=== PATIENT | male | born 1940 | race Caucasian/White ===

== ENCOUNTER → 2019-01-11 08:29 | Day surgery (SDC) | payer MEDICARE ==
--- NOTE | 2019-01-09 11:09 | HP ---
CC: Dr. Gary; Dr. Riojas; Dr. Veliz * ADMISSION HISTORY AND PHYSICAL: DATE OF ADMISSION: 01/11/19 ADMITTING DIAGNOSES: 1. Recurrent episodes of gross hematuria. 2. History of prostate cancer. 3. History of superficial bladder cancer. SURGICAL PROCEDURE: Cystoscopy, possible transurethral resection of bladder tumor. SURGEON: Dr. Veliz. HISTORY OF PRESENT ILLNESS: Ronaldo Wheeler is a 78-year-old former smoker who had undergone radiation therapy in 2004 for Al 6 prostate cancer. 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 He subsequently had bladder biopsies done on 2 separate occasions and the pathology at that time was reported as benign. He has recently had recurrent episodes of gross hematuria including problems of clot retention requiring catheterization and catheter irrigation and this has persisted in spite of his having stopped his Plavix and aspirin. Because of the continued episodes of hematuria, he is now being brought in for cystoscopy and possible transurethral resection of bladder tumors depending on intraoperative findings. PAST MEDICAL HISTORY: Significant for, 1. Abdominal aortic aneurysm. 2. Coronary artery disease. 3. Peripheral vascular disease. 4. History of prostate cancer. 5. History of colon cancer. 6. Hypertension. 7. Hypercholesterolemia. 8. COPD. 9. Diabetes. 10. Gout. PAST SURGICAL HISTORY: Significant for, 1. Transurethral resection of prostate in 2006. 2. Transurethral resection of bladder lesions of several locations. 3. Cataract surgery. 4. AAA repair in 2001. 5. Colon cancer resection in 2001. 6. Multiple surgeries for Zenker's diverticulum. 7. Angioplasty and coronary stent placement in 2003. MEDICATIONS ON ADMISSION: 1. Gabapentin 600 mg 3 tablets twice a day. 2. Allopurinol 600 mg daily. 3. Metformin 500 mg twice a day. 4. DuoNeb 0.5/2.5 four times a day p.r.n. 5. Ventolin 1 to 2 puffs every 4 to 6 hours as needed. 6. Gemfibrozil 600 mg twice a day. 7. Lisinopril 10 mg a day. 8. Atorvastatin 80 mg daily. 9. Metoprolol 25 mg once a day. 10. Isosorbide 30 mg daily. ALLERGIES: MORPHINE (rash). FAMILY HISTORY: Negative for bladder cancer. SOCIAL HISTORY: Smoking history: He is a former smoker who quit in 1993. PHYSICAL EXAMINATION GENERAL: Reveals a pleasant elderly gentleman. VITAL SIGNS: Blood pressure is 114/72, pulse 83 per minute and regular, oxygen saturation 97%, temperature 96.2. LUNGS: Clear bilaterally. CARDIOVASCULAR: Regular rate and rhythm. S1, S2. ABDOMEN: Soft without masses. A Arellano catheter is in place. IMPRESSION: A 78-year-old former smoker with a history of bladder and prostate cancer, who continues to have significant episodic hematuria in spite of being off the anticoagulation medicine. PLAN: Plan is for cystoscopy and possible transurethral resection of bladder tumor. [id number]/[facility] #: [id number] MTDD
[~2019-01-11 08:29] MED LIST: Acetaminophen IV 1GM/100ML * 1,000 MG/100 ML VIAL IVPB ONE; Buffered Lidocaine 1% SYRIN* 1 ML/SYRINGE INTRADERM ONE; Furosemide IV* 10 MG/ML 2 ML VIAL (20 MG) ONE; Lactated Ringers 1000 ML Bag* 1,000 ML IV SCH; Lidocaine 2% JELLY* 6 ML JELLY TOPICAL ONE; Lidocaine 2% PF * 5 ML VIAL ONE; Metoprolol Tartrate IV* 1 MG/ML 5 ML VIAL ONE; Naloxone* 0.4 MG/ML 1 ML VIAL IV PRN; Ondansetron INJ* 2 MG/ML VIAL IV PRN; Propofol* 10 MG/ML 20 ML BTL ONE; Sodium Citrate/Citric Acid* 15 ML UDC ONE; Sodium Citrate/Citric Acid* 15 ML UDC PO ONE; cefTRIAXone(*) 2 GM ADDV.VIAL IVPB ONE; fentaNYL* 50 MCG/ML 2 ML VIAL (100 MCG VIAL) IV PRN; fentaNYL* 50 MCG/ML 2 ML VIAL (100 MCG VIAL) ONE
[2019-01-11 12:52] VITALS: BP 157/67
--- NOTE | 2019-01-11 13:08 | OP ---
CC: Dr. Gary * DATE OF OPERATION: 01/11/19 - [facility] DATE OF : 38 SURGEON: Dr. Veliz. ANESTHESIOLOGIST: Dr. Dai. ANESTHESIA: General. PRE-OP DIAGNOSES: 1. Gross hematuria. 2. History of prostate and bladder cancer. POST-OP DIAGNOSES: 1. Gross hematuria. 2. History of prostate and bladder cancer. OPERATIVE PROCEDURES: 1. Cystoscopy, excision biopsies of bladder lesions (2 to 3 cm). 2. Transurethral incision of prostate. 3. Transurethral incision of bladder neck. COMPLICATIONS: None. BLOOD LOSS: Less than 25 cc. CATHETER: 24-Sammar[place] Arellano. INDICATIONS: Ronaldo Wheeler is a 78-year-old gentleman with episodic gross hematuria who has a past history of prostate cancer as well as superficial bladder cancer. He continues to have episodic gross hematuria in spite of having stopped the Plavix and is now being brought into further evaluation and management. OPERATIVE FINDINGS: 1. Mild stricture at bladder neck. 2. Few areas of posterior bladder wall possibly representing low-grade superficial bladder cancer. 3. Few areas of telangiectasia in right lateral wall of bladder and in prostatic urethra. POSTOPERATIVE CONDITION: Stable. DESCRIPTION OF PROCEDURE: After induction of general anesthesia, the patient was placed in dorsal lithotomy position. Sequential compression devices were in place and functioning. Initial cystoscopy revealed a normal-appearing urethra. There was very mild enlargement in the area of the prostate with some areas of increased vascularity noted in the prostatic urethra. There was a mild stricture at the bladder neck. The bladder was examined. The right and left ureteral orifices were normal in position and configuration. In the posterior bladder wall, there were few small areas which may represent low- grade superficial bladder tumor. There were some areas of telangiectasia in the posterior bladder wall on the right side. Excision biopsies were performed for the lesions in the posterior bladder wall which were sent for histopathology. Next, a resectoscope was introduced and areas were carefully cauterized at the edges and the bases. The few areas of telangiectasia in the bladder wall were also cauterized. Next, using a right angle knife electrode, transurethral incision of the prostate and transurethral incision of the bladder neck was carried out. Once this was done and hemostasis was achieved, 24-S[place] Arellano was introduced without difficulty and connected to a drainage bag. The patient tolerated the procedure satisfactorily and was transferred back to the recovery area in stable condition. [id number]/[facility] #: [id number] MTDD
== END | disposition home or self-care (01) ==
LOC: OR 08:29
PROVIDERS: ATTEND Urology
DX: N32.89 Other specified disorders of bladder (principal); R31.0 Gross hematuria; Z85.46 Personal history of malignant neoplasm of prostate; Z85.51 Personal history of malignant neoplasm of bladder; E11.9 Type 2 diabetes mellitus without complications; Z79.84 Long term (current) use of oral hypoglycemic drugs; I25.10 Atherosclerotic heart disease of native coronary artery without angina pectoris; I10 Essential (primary) hypertension; J44.9 Chronic obstructive pulmonary disease, unspecified; M10.9 Gout, unspecified; I73.9 Peripheral vascular disease, unspecified; Z87.891 Personal history of nicotine dependence; Z95.5 Presence of coronary angioplasty implant and graft
CPT/HCPCS: 36415; 84132; 85730; 88305; A9270-GY; J0696; J1940; J2704; J3010; J3490

== ENCOUNTER 2020-04-08 21:14 | Observation (INO) ==
[2020-04-09 01:18] LABS: ABS Lymphocytes 1.1 10^3/ul (1.0-4.8); ABS Monocytes 0.7 10^3/ul (0-0.8); ABS Neutrophils 6.1 10^3/ul (1.5-7.7); Eosinophil % 0.6 %; Hematocrit 39 % (42-52); Hemoglobin 13.4 g/dL (14.0-18.0); Lymphocyte % 13.5 %; Mean Corpuscular HGB Conc 35 g/dL (31-36); Mean Corpuscular Hemoglobin 32 pg (27-31); Mean Corpuscular Volume 92 fL (80-94); Mean Platelet Volume 7.8 fL (7.4-10.4); Platelet Count 167 10^3/uL (150-450); Red Cell Distribution Width 17 % (10-15); White Blood Count 7.9 10^3/uL (3.5-10.8)
[2020-04-09 01:46] LABS: ALT 14 U/L (7-52); AST 25 U/L (13-39); Albumin 4.2 g/dL (3.2-5.2); Albumin/Globulin Ratio 1.4 (1-3); Alkaline Phosphatase 104 U/L (34-104); Anion Gap 8 mmol/L (2-11); BUN/Creatinine Ratio 17.7 (8-20); Blood Urea Nitrogen 25 mg/dL (6-24); CO2 Carbon Dioxide 28 mmol/L (22-32); Calcium 9.5 mg/dL (8.6-10.3); Chloride 99 mmol/L (101-111); EGFR African American 58.5 (>60); EGFR Non-African American 48.4 (>60); Globulin 2.9 g/dL (2-4); Glucose 120 mg/dL (70-100); Potassium 4.2 mmol/L (3.5-5.0); Sodium 135 mmol/L (135-145); Total Protein 7.1 g/dL (6.4-8.9)
[2020-04-09 01:56] LABS: Troponin I 0.05 ng/mL (<0.03)
[2020-04-09 04:52] LABS: Troponin I 0.04 ng/mL (<0.03)
[2020-04-09] MEDS ORDERED: NS 0.9% 1000 ml BAG 1,000 ML IV ONE (05:51)
[2020-04-09] MEDS ORDERED: Dextrose 50% Syringe 50 ml 25 GM/50 ML SYRINGE IV PUSH PRN (05:52)
[2020-04-09 05:56] LABS: Urine Appearance Turbid; Urine Bilirubin Negative (Negative); Urine Blood 1+ (Negative); Urine Color Amber; Urine Glucose Negative (Negative); Urine Ketones Trace (Negative); Urine Nitrite Positive (Negative); Urine Protein 3+(>=500 mg/dL) (Negative); Urine Specific Gravity 1.019 (1.010-1.030); Urine Urobilinogen Negative (Negative)
[2020-04-09 06:09] LABS: Urine Bacteria 2+ (Absent); Urine Red Blood Cell 3+(>10/hpf) (Absent); Urine White Blood Cell 3+(>20/hpf) (Absent)
[2020-04-09] MEDS ORDERED: cefTRIAXone 1 gm/50 mL NS BAG 1 GM/50 ML BAG IVPB SCH (07:00)
[2020-04-09 07:19] LABS: TSH Ultra Thyroid Stim Horm 3.02 mcIU/mL (0.34-5.60)
[2020-04-09 07:30] LABS: Vitamin B12 207 pg/mL (180-914)
[2020-04-09 09:37] LABS: Troponin I 0.04 ng/mL (<0.03)
[2020-04-09 10:07] LABS: Folate > 20.00 ng/mL (>3.99)
[2020-04-09] MEDS: cefTRIAXone 1 gm/50 mL NS BAG 1 GM/50 ML BAG IVPB SCH (11:19)
[2020-04-10 05:33] LABS: ABS Eosinophils 0.1 10^3/ul (0-0.6); ABS Monocytes 0.6 10^3/ul (0-0.8); ABS Neutrophils 5.3 10^3/ul (1.5-7.7); Hematocrit 42 % (42-52); Hemoglobin 14.1 g/dL (14.0-18.0); Lymphocyte % 14.4 %; Mean Corpuscular HGB Conc 33 g/dL (31-36); Mean Corpuscular Hemoglobin 31 pg (27-31); Mean Corpuscular Volume 94 fL (80-94); Mean Platelet Volume 8.4 fL (7.4-10.4); Platelet Count 157 10^3/uL (150-450); Red Blood Count 4.49 10^6 /uL (4.18-5.48); Red Cell Distribution Width 16 % (10-15)
[2020-04-10 05:50] LABS: BUN/Creatinine Ratio 23.1 (8-20); Calcium 9.5 mg/dL (8.6-10.3); EGFR African American 69.8 (>60); EGFR Non-African American 57.7 (>60); Potassium 4.1 mmol/L (3.5-5.0)
[2020-04-10] MEDS ORDERED: Aspirin EC 81 mg TAB.EC (enteric coated) PO SCH (09:00)
[2020-04-10] MEDS: cefTRIAXone 1 gm/50 mL NS BAG 1 GM/50 ML BAG IVPB SCH (09:01)
[2020-04-10 11:11] VITALS: BP 139/64
== END 2020-04-10 13:40 | disposition home or self-care (01) ==
LOC: ED 21:14 → MEDTELE 21:14 → ED 04-09 08:01
PROVIDERS: ADMIT Student in an Organized Health Care Education/Training Program; ATTEND Internal Medicine

== ENCOUNTER 2020-11-27 16:34 | Inpatient (IN) ==
[2020-11-27 20:24] LABS: ABS Eosinophils 0.1 10^3/ul (0-0.6); ABS Lymphocytes 1.2 10^3/ul (1.0-4.8); ABS Monocytes 0.5 10^3/ul (0-0.8); ABS Neutrophils 5.6 10^3/ul (1.5-7.7); Eosinophil % 0.7 %; Hematocrit 43 % (42-52); Hemoglobin 14.5 g/dL (14.0-18.0); Lymphocyte % 15.6 %; Mean Corpuscular HGB Conc 34 g/dL (31-36); Mean Corpuscular Hemoglobin 32 pg (27-31); Mean Corpuscular Volume 96 fL (80-94); Platelet Count 151 10^3/uL (150-450); Red Cell Distribution Width 17 % (10-15); White Blood Count 7.4 10^3/uL (3.5-10.8)
[2020-11-27 20:38] LABS: Ammonia 23 mcmol/L (16-53)
[2020-11-27 20:39] LABS: ALT 9 U/L (7-52); AST 16 U/L (13-39); Albumin 4.3 g/dL (3.2-5.2); Albumin/Globulin Ratio 1.6 (1-3); Alkaline Phosphatase 103 U/L (35-149); Anion Gap 9 mmol/L (2-11); Blood Urea Nitrogen 26 mg/dL (6-24); CO2 Carbon Dioxide 27 mmol/L (22-32); Calcium 9.2 mg/dL (8.6-10.3); Chloride 97 mmol/L (101-111); EGFR Non-African American 52.1 (>60); Globulin 2.7 g/dL (2-4); Glucose 100 mg/dL (70-100); Lipase 11 U/L (11.0-82.0); Magnesium 1.6 mg/dL (1.9-2.7); Potassium 4.1 mmol/L (3.5-5.0); Sodium 133 mmol/L (135-145)
[2020-11-27 20:43] LABS: BNP 56 pg/mL (<=100)
[2020-11-27 20:56] LABS: Troponin I 0.03 ng/mL (<0.03)
[2020-11-27 22:11] LABS: Urine Appearance Clear; Urine Bilirubin Negative (Negative); Urine Blood 1+ (Negative); Urine Color Yellow; Urine Glucose Negative (Negative); Urine Ketones Trace (Negative); Urine Nitrite Negative (Negative); Urine Protein 3+(>=500 mg/dL) (Negative); Urine Specific Gravity 1.012 (1.002-1.030); Urine Urobilinogen Negative (Negative)
[2020-11-27] MEDS ORDERED: Iodixanol (CONTRAST) 320 MG/ML 100 ML SDV IV ONE (22:50)
[2020-11-27 22:51] LABS: Troponin I 0.03 ng/mL (<0.03)
[2020-11-27] MEDS ORDERED: Dextrose 50% Syringe 50 ml 25 GM/50 ML SYRINGE IV PUSH PRN (23:08)
[2020-11-27] MEDS ORDERED: Ondansetron 4 mg VIAL 2 MG/ML 2 ml VIAL IV PRN (23:08)
[2020-11-27] MEDS ORDERED: Albuterol HFA INHALER 8 gm MDI INH PRN (23:14)
[2020-11-28 01:21] LABS: PCO2 Arterial 38 mmHg (35-45); PO2 Arterial 82 mmHg (80-100)
[2020-11-28 03:19] LABS: Activated Partial Thrombo Time 30.6 seconds (26.0-38.0); INR 1.09 (0.86-1.15)
[2020-11-28 03:25] LABS: Anion Gap 11 mmol/L (2-11); Blood Urea Nitrogen 25 mg/dL (6-24); CO2 Carbon Dioxide 24 mmol/L (22-32); Calcium 9.2 mg/dL (8.6-10.3); Chloride 95 mmol/L (101-111); Cholesterol 185 mg/dL; EGFR African American 62.4 (>60); EGFR Non-African American 51.6 (>60); Glucose 99 mg/dL (70-100); HDL Cholesterol 41.2 mg/dL; LDL Cholesterol 96 mg/dL; Potassium 3.9 mmol/L (3.5-5.0); Sodium 130 mmol/L (135-145); Triglycerides 240 mg/dL
[2020-11-28 03:40] LABS: TSH Ultra Thyroid Stim Horm 4.51 mcIU/mL (0.34-5.60)
[2020-11-28 03:45] LABS: Troponin I 0.03 ng/mL (<0.03)
[2020-11-28 05:53] LABS: ABS Basophils 0.1 10^3/ul (0-0.2); ABS Eosinophils 0.1 10^3/ul (0-0.6); ABS Lymphocytes 0.9 10^3/ul (1.0-4.8); ABS Monocytes 0.6 10^3/ul (0-0.8); ABS Neutrophils 5.8 10^3/ul (1.5-7.7); Eosinophil % 1.1 %; Hematocrit 42 % (42-52); Hemoglobin 14.2 g/dL (14.0-18.0); Lymphocyte % 12.6 %; Mean Corpuscular HGB Conc 34 g/dL (31-36); Mean Corpuscular Hemoglobin 33 pg (27-31); Mean Corpuscular Volume 97 fL (80-94); Mean Platelet Volume 8.1 fL (7.4-10.4); Nucleated Red Blood Cells % 0.1; Platelet Count 137 10^3/uL (150-450); Red Blood Count 4.37 10^6 /uL (4.18-5.48); Red Cell Distribution Width 16 % (10-15); White Blood Count 7.4 10^3/uL (3.5-10.8)
[2020-11-28] MEDS: Heparin 5000 UNITS/ML 1 mL VIAL SUBCUT SCH ×3 (06:00→23:30)
[2020-11-28 06:43] LABS: Troponin I 0.03 ng/mL (<0.03)
[2020-11-28 07:41] LABS: Magnesium 1.7 mg/dL (1.9-2.7)
[2020-11-28] MEDS: Isosorbide Mononit ER 30mg TAB PO SCH (10:17)
[2020-11-28] MEDS ORDERED: NS 0.9% 1000 ml BAG 1,000 ML IV ONE (12:14)
[2020-11-28] MEDS ORDERED: NS 0.9% 500 ml BAG 500 ML IV SCH (15:23)
[2020-11-29 06:11] LABS: Hematocrit 37 % (42-52); Hemoglobin 12.8 g/dL (14.0-18.0); Mean Corpuscular HGB Conc 34 g/dL (31-36); Mean Corpuscular Hemoglobin 32 pg (27-31); Mean Corpuscular Volume 95 fL (80-94); Mean Platelet Volume 8.4 fL (7.4-10.4); Platelet Count 138 10^3/uL (150-450); Red Blood Count 3.94 10^6 /uL (4.18-5.48); Red Cell Distribution Width 16 % (10-15); White Blood Count 5.9 10^3/uL (3.5-10.8)
[2020-11-29 06:22] LABS: Calcium 8.9 mg/dL (8.6-10.3); Potassium 4.2 mmol/L (3.5-5.0)
[2020-11-29 06:28] LABS: EGFR African American 56.1 (>60); EGFR Non-African American 46.3 (>60); Phosphorus 3.7 mg/dL (2.5-5.0)
[2020-11-29] MEDS: Heparin 5000 UNITS/ML 1 mL VIAL SUBCUT SCH ×2 (06:42→14:48)
[2020-11-29] MEDS: Isosorbide Mononit ER 30mg TAB PO SCH (09:55)
[2020-11-29] MEDS ORDERED: Cyanocobalamin INJ 1,000 MCG/ML VIAL 1 ML VIAL IM ONE ×2 (18:16→21:00)
[2020-11-30] MEDS: Heparin 5000 UNITS/ML 1 mL VIAL SUBCUT SCH ×4 (00:06→20:04)
[2020-11-30 06:26] LABS: Hematocrit 39 % (42-52); Hemoglobin 12.8 g/dL (14.0-18.0); Mean Corpuscular HGB Conc 33 g/dL (31-36); Mean Corpuscular Hemoglobin 33 pg (27-31); Mean Corpuscular Volume 98 fL (80-94); Mean Platelet Volume 8.3 fL (7.4-10.4); Platelet Count 146 10^3/uL (150-450); Red Blood Count 3.94 10^6 /uL (4.18-5.48); Red Cell Distribution Width 17 % (10-15); White Blood Count 6.1 10^3/uL (3.5-10.8)
[2020-11-30 06:43] LABS: Calcium 9.1 mg/dL (8.6-10.3); EGFR African American 39.2 (>60); EGFR Non-African American 32.4 (>60); Magnesium 2.2 mg/dL (1.9-2.7); Phosphorus 4.2 mg/dL (2.5-5.0); Potassium 4.3 mmol/L (3.5-5.0)
[2020-11-30] MEDS ORDERED: NS 0.9% 1000 ml BAG 1,000 ML IV ONE (09:44)
[2020-11-30] MEDS: Isosorbide Mononit ER 30mg TAB PO SCH (10:28)
[2020-11-30 10:57] LABS: Urine Potassium Concentration 36.5 mmol/L
[2020-11-30 11:10] LABS: Urine Benzodiazepine Screen None Detected (None Detect); Urine Cannabinoids Screen None Detected (None Detect); Urine Opiates Screen None Detected (None Detect)
[2020-12-01] MEDS: Heparin 5000 UNITS/ML 1 mL VIAL SUBCUT SCH (05:25)
[2020-12-01 06:24] LABS: ABS Eosinophils 0.1 10^3/ul (0-0.6); ABS Lymphocytes 0.9 10^3/ul (1.0-4.8); ABS Monocytes 0.5 10^3/ul (0-0.8); ABS Neutrophils 3.4 10^3/ul (1.5-7.7); Eosinophil % 1.9 %; Hematocrit 39 % (42-52); Hemoglobin 12.8 g/dL (14.0-18.0); Lymphocyte % 17.9 %; Mean Corpuscular HGB Conc 33 g/dL (31-36); Mean Corpuscular Hemoglobin 33 pg (27-31); Mean Corpuscular Volume 99 fL (80-94); Mean Platelet Volume 8.3 fL (7.4-10.4); Platelet Count 140 10^3/uL (150-450); Red Blood Count 3.93 10^6 /uL (4.18-5.48); Red Cell Distribution Width 16 % (10-15); White Blood Count 4.9 10^3/uL (3.5-10.8)
[2020-12-01 06:26] LABS: Calcium 8.8 mg/dL (8.6-10.3); Potassium 4.4 mmol/L (3.5-5.0)
[2020-12-01 06:32] LABS: EGFR African American 60.9 (>60); EGFR Non-African American 50.3 (>60)
[2020-12-01] MEDS: Isosorbide Mononit ER 30mg TAB PO SCH (09:41)
[2020-12-01 13:18] VITALS: BP 145/70
== END 2020-12-01 14:05 | disposition home or self-care (01) | DRG 92 ==
LOC: ED 16:34 → MEDTELE 16:34
PROVIDERS: ADMIT Internal Medicine; ATTEND Student in an Organized Health Care Education/Training Program

== ENCOUNTER 2021-04-20 13:39 | Inpatient (IN) ==
[2021-04-20 14:06] LABS: ABS Lymphocytes 1.1 10^3/ul (1.0-4.8); ABS Monocytes 0.8 10^3/ul (0-0.8); ABS Neutrophils 7.5 10^3/ul (1.5-7.7); Eosinophil % 0.4 %; Hematocrit 45 % (42-52); Lymphocyte % 11.4 %; Mean Corpuscular HGB Conc 33 g/dL (31-36); Mean Corpuscular Hemoglobin 31 pg (27-31); Mean Corpuscular Volume 93 fL (80-94); Mean Platelet Volume 8.2 fL (7.4-10.4); Platelet Count 172 10^3/uL (150-450); Red Blood Count 4.89 10^6 /uL (4.18-5.48); Red Cell Distribution Width 16 % (10-15); White Blood Count 9.5 10^3/uL (3.5-10.8)
[2021-04-20] MEDS ORDERED: Lorazepam PYXIS KEY PRN (14:09)
[2021-04-20] MEDS ORDERED: LORazepam 2 mg VIAL 1 ml IV PUSH ONE (14:09)
[2021-04-20 14:24] LABS: ALT 10 U/L (7-52); Albumin 4.2 g/dL (3.2-5.2); Albumin/Globulin Ratio 1.3 (1-3); Alkaline Phosphatase 94 U/L (35-149); Blood Urea Nitrogen 32 mg/dL (6-24); CO2 Carbon Dioxide 24 mmol/L (22-32); Calcium 9.5 mg/dL (8.6-10.3); Chloride 101 mmol/L (101-111); Globulin 3.3 g/dL (2-4); Glucose 115 mg/dL (70-100); Sodium 137 mmol/L (135-145); Total Protein 7.5 g/dL (6.4-8.9); eGFR CKD-EPI 45.7 (>60)
[2021-04-20 14:26] LABS: Anion Gap 12 mmol/L (2-11)
[2021-04-20 14:27] LABS: AST 26 U/L (13-39)
[2021-04-20 14:40] LABS: Troponin I 0.04 ng/mL (<0.03)
[2021-04-20 14:54] LABS: Acetaminophen < 15 mcg/mL; Salicylate < 2.50 mg/dL (<30)
[2021-04-20] MEDS ORDERED: Lactated Ringers 1000 ml BAG 1,000 ML IV ONE (14:57)
[2021-04-20] MEDS ORDERED: cefTRIAXone 1 gm/50 mL NS BAG 1 GM/50 ML BAG IV ONE (15:23)
[2021-04-20] MEDS ORDERED: Azithromycin 500 mg/250 ml NS 500 MG/250 ML BAG IVPB ONE (15:23)
[2021-04-20] MEDS ORDERED: Ondansetron 4 mg VIAL 2 MG/ML 2 ml VIAL IV PRN (16:49)
[2021-04-20] MEDS ORDERED: Albuterol HFA INHALER 8 gm MDI INH PRN (16:52)
[2021-04-20] MEDS ORDERED: Dextrose 50% Syringe 50 ml 25 GM/50 ML SYRINGE IV PUSH PRN (16:53)
[2021-04-20] MEDS ORDERED: NS 0.9% 1000 ml BAG 1,000 ML IV SCH (17:00)
[2021-04-20 17:38] LABS: C Reactive Protein 2.67 mg/L (<8.01); Cholesterol 162 mg/dL; LDL Cholesterol 75 mg/dL; Triglycerides 227 mg/dL
[2021-04-20 18:55] LABS: TSH Ultra Thyroid Stim Horm 3.41 mcIU/mL (0.34-5.60)
[2021-04-20 19:04] LABS: Urine Appearance Cloudy; Urine Bilirubin Negative (Negative); Urine Blood 1+ (Negative); Urine Color Yellow; Urine Glucose Negative (Negative); Urine Ketones 1+ (Negative); Urine Nitrite Negative (Negative); Urine Protein 3+(>=500 mg/dL) (Negative); Urine Specific Gravity 1.022 (1.002-1.030); Urine Urobilinogen Negative (Negative)
[2021-04-20 19:11] LABS: Urine Bacteria 1+ (Absent); Urine Red Blood Cell Trace(0-2/hpf) (Absent); Urine White Blood Cell Trace(0-5/hpf) (Absent)
[2021-04-20 19:57] LABS: Troponin I 0.04 ng/mL (<0.03)
[2021-04-21 06:11] LABS: ABS Basophils 0.1 10^3/ul (0-0.2); ABS Lymphocytes 1.2 10^3/ul (1.0-4.8); ABS Monocytes 0.7 10^3/ul (0-0.8); Eosinophil % 0.5 %; Hematocrit 40 % (42-52); Hemoglobin 13.4 g/dL (14.0-18.0); Lymphocyte % 14.7 %; Mean Corpuscular HGB Conc 33 g/dL (31-36); Mean Corpuscular Hemoglobin 31 pg (27-31); Mean Corpuscular Volume 93 fL (80-94); Platelet Count 140 10^3/uL (150-450); Red Blood Count 4.33 10^6 /uL (4.18-5.48); Red Cell Distribution Width 17 % (10-15)
[2021-04-21 06:28] LABS: Calcium 8.8 mg/dL (8.6-10.3); Potassium 4.1 mmol/L (3.5-5.0); eGFR CKD-EPI 48.4 (>60)
[2021-04-21] MEDS ORDERED: Nitrofurantoin (monohydrate/macrocrystals) 100 mg CAP PO SCH (09:00)
[2021-04-21] MEDS ORDERED: NS 0.9% 1000 ml BAG 1,000 ML IV SCH (11:18)
[2021-04-21 14:41] LABS: Urine Creatinine Concentration 140.2 mg/dL
[2021-04-22 08:59] LABS: Hematocrit 44 % (42-52); Hemoglobin 14.8 g/dL (14.0-18.0); Mean Corpuscular HGB Conc 33 g/dL (31-36); Mean Corpuscular Hemoglobin 31 pg (27-31); Mean Corpuscular Volume 94 fL (80-94); Mean Platelet Volume 8.1 fL (7.4-10.4); Platelet Count 157 10^3/uL (150-450); Red Blood Count 4.71 10^6 /uL (4.18-5.48); Red Cell Distribution Width 17 % (10-15); White Blood Count 8.3 10^3/uL (3.5-10.8)
[2021-04-22 09:08] LABS: ABS Basophils 0.1 10^3/ul (0-0.2); ABS Eosinophils 0.1 10^3/ul (0-0.6); ABS Monocytes 0.4 10^3/ul (0-0.8); ABS Neutrophils 6.6 10^3/ul (1.5-7.7); Eosinophil % 1.4 %; Lymphocyte % 12.3 %
[2021-04-22 09:13] LABS: Calcium 9.3 mg/dL (8.6-10.3); eGFR CKD-EPI 64.6 (>60)
[2021-04-23] MEDS ORDERED: Haloperidol 5 mg/ml SDV IV/IM 5 MG/ML AMP IM ONE (01:37)
[2021-04-23] MEDS ORDERED: Isosorbide Mononit ER 30mg TAB PO SCH (09:00)
[2021-04-23] MEDS: Heparin 5000 UNITS/ML 1 mL VIAL SUBCUT SCH (21:14)
[2021-04-24 06:03] LABS: ABS Eosinophils 0.1 10^3/ul (0-0.6); ABS Lymphocytes 0.9 10^3/ul (1.0-4.8); ABS Monocytes 0.4 10^3/ul (0-0.8); ABS Neutrophils 3.9 10^3/ul (1.5-7.7); Eosinophil % 1.8 %; Hematocrit 39 % (42-52); Hemoglobin 13.1 g/dL (14.0-18.0); Lymphocyte % 16.7 %; Mean Corpuscular HGB Conc 34 g/dL (31-36); Mean Corpuscular Hemoglobin 31 pg (27-31); Mean Corpuscular Volume 93 fL (80-94); Mean Platelet Volume 8.3 fL (7.4-10.4); Platelet Count 129 10^3/uL (150-450); Red Blood Count 4.18 10^6 /uL (4.18-5.48); Red Cell Distribution Width 17 % (10-15); White Blood Count 5.3 10^3/uL (3.5-10.8)
[2021-04-24 06:27] LABS: Magnesium 1.6 mg/dL (1.9-2.7); Potassium 3.7 mmol/L (3.5-5.0); eGFR CKD-EPI 80.4 (>60)
[2021-04-24] MEDS ORDERED: Magnesium Sulfate 2 gm BAG 2 GM/50 ML BAG IVPB ONE (08:17)
[2021-04-24] MEDS: Heparin 5000 UNITS/ML 1 mL VIAL SUBCUT SCH (08:41)
[2021-04-24] MEDS ORDERED: Isosorbide Mononit ER 60mg TAB PO SCH (09:00)
[2021-04-24 13:20] VITALS: BP 122/49
== END 2021-04-24 14:03 | disposition home or self-care (01) | DRG 57 ==
LOC: ED 13:39 → SUATTDRO 16:49 → EDHOLD 16:49 → MEDTELE 19:05
PROVIDERS: ADMIT Student in an Organized Health Care Education/Training Program; ATTEND Hospitalist